=== PATIENT | female | born 1940 | race Caucasian/White ===

== ENCOUNTER → 2016-09-18 16:45 | Outpatient (CLI) | payer MEDICARE, OTHER | END | disposition home or self-care (01) | LOC: D.MAMMO 09:45 | DX: Z12.31 Encounter for screening mammogram for malignant neoplasm of breast (principal) ==

== ENCOUNTER → 2017-09-26 16:51 | Outpatient (CLI) | payer MEDICARE, OTHER | END | disposition home or self-care (01) | LOC: D.MAMMO 09-16 10:00 | DX: Z12.31 Encounter for screening mammogram for malignant neoplasm of breast (principal) ==

== ENCOUNTER 2018-09-04 08:00 | Day surgery (SDC) | payer MEDICARE, OTHER ==
[2018-09-02 11:30] LABS: HEMATOCRIT 40.2 % (36.0-48.0); HEMOGLOBIN 13.6 g/dL (12-16); MCH 31.3 pg (26.0-34.0); MCHC 33.8 g/dL (31.0-37.0); MEAN PLATELET VOLUME 9.9 fL (7.4-10.4); RBC 4.34 10x6/uL (4.00-5.40); RDW 12.1 % (11.5-14.5); WBC 6.5 10x3/uL (4.8-10.8)
[2018-09-02 11:34] LABS: MCV 92.7 fL (80.0-100.0)
[2018-09-02 11:47] LABS: CALC OSMOLALITY 280 mosm/kg (275-300); CALCIUM 8.9 mg/dL (8.5-10.1); CARBON DIOXIDE 34.2 mmol/L (21.0-32.0); CHLORIDE - SERUM 102 mmol/L (98-107); CREATININE - SERUM 0.7 mg/dL (0.6-1.3); GLUCOSE 116 mg/dL (74-106); SODIUM 141 mmol/L (136-145); UREA NITROGEN 9 mg/dL (7-18); eGFR NON AFRICAN AMERICAN 86 mL/min (90-120)
[~2018-09-04] VITALS: Ht 154.9 cm; Wt 59.0 kg
[~2018-09-04 08:00] MED LIST: FLUTICASONE PRO16 GM NASAL; LINZESS145 MCG PO; LYRICA75 MG PO; MELATONIN10 M1 PO; MIRALAX17 GM PO; OMEPRAZOLE40 MG PO; STOOL SOFTENER100 M1 PO
[2018-09-04 08:45] VITALS: BP 119/39; Ht 154.9 cm; Wt 59.0 kg
[2018-09-04] MEDS ORDERED: HYDROCODON-ACE1 EA10 PO (17:33)
--- NOTE | 2018-09-04 17:42 | NUR ---
DR CANO CONTACTED BY PHONE REGARDING PATIENT'S PAIN IN RIGHT LEG RATED AT 7 ON 0-10 SCALE. ORDERS RECEIVED AND NOTED
--- NOTE | 2018-09-04 18:27 | NUR ---
RX CALLED IN TO [facility] PER PATIENT CHOICE, DR CANO'S REQUEST OF RX TO BE CALLED IN: NEURONTIN 300 MG PO Q8H #90 WITH NO REFILLS. THIS RX IS CALLED TO [facility] ON [address]
--- NOTE | 2018-09-04 18:45 | NUR ---
PATIENT AMBULATING WITHOUT DIFFICULTY, STATES PAIN IS BETTER, IS TOLERABLE NOW. PATIENT WANTS TO GO HOME. LEFT WRIST PIV DC'D WITH TIP INTACT. PATIENT DRESSING IN PERSONAL CLOTHING
--- NOTE | 2018-09-04 19:02 | NUR ---
DISCHARGE INSTRUCTIONS REVIEWED WITH PATIENT AND SPOUSE. DISCHARGED HOME VIA WHEELCHAIR TO PRIVATE VEHICLE WITH SPOUSE
== END 2018-09-04 19:04 | disposition home or self-care (01) ==
LOC: D.OPS 08:00
PROVIDERS: Anesthesiology; ATTEND Neurological Surgery
DX: M48.061 Spinal stenosis, lumbar region without neurogenic claudication (principal)

== ENCOUNTER 2018-12-12 08:00 | Outpatient (CLI) | payer MEDICARE, OTHER ==
[2018-09-04 08:45] VITALS: BMI 24.6
[~2018-12-12 08:00] MED LIST changes: +HYDROCODON-ACE1 EA10 PO
== END 2018-12-12 23:59 | disposition home or self-care (01) ==
LOC: D.MAMMO 08:00
PROVIDERS: ATTEND Internal Medicine
DX: Z12.31 Encounter for screening mammogram for malignant neoplasm of breast (principal)

== ENCOUNTER 2020-02-29 15:00 | Outpatient (CLI) | payer MEDICARE ==
[2018-09-04 08:45] VITALS: BMI 24.6
== END 2020-02-29 23:59 | disposition home or self-care (01) ==
LOC: D.MAMMO 15:00
PROVIDERS: ATTEND Internal Medicine
DX: Z12.31 Encounter for screening mammogram for malignant neoplasm of breast (principal)